=== PATIENT | male | born 1975 | race African-American/Black ===

== ENCOUNTER → 2016-10-19 | Outpatient (CLI) | payer BC ==
[~2016-10-19] MED LIST: REGADENOSON 0.4 MG/5 ML DISP.SYRIN. IV ONE
--- NOTE | 2016-10-19 13:30 | RAD ---
APPROVED REPORT Test Type: Pharmacological Stress Nurse/Tech: RIO CHA Test Indications: ELEVATED TROPONIN Cardiac History: NONE STATED, SEE EHR Medications: SEE EHR Medical History: ASTHMA, DIABETES, SEE EHR Resting ECG: SR Resting Heart Rate: 95 bpm Resting Blood Pressure: 138/87mmHg Pretest Chest Pain: No chest pain Nurse/Tech Notes LUNG SOUNDS CLEAR, S12 WNL. Consent: The procedure was explained to the patient in lay terms. Informed consent was witnessed. Randolph eout was entered into [employer]. History and Stress Test performed by RT Meggan (R) (N) Pharm. Details Pharmacologic stress testing was performed using 0.4mg per 5ml of regadenoson given intravenously ove r 7-10 seconds. Stress Symptoms NONE STATED. POST EXERCISE Reason for Termination: Infusion complete Max HR: 118 bpm Max Blood Pressure: 138/87mmHg Chest Pain: No. Arrhythmia: No. ST Change: No. INTERPRETATION Stress EKG Conclusion: The resting EKG shows a sinus rhythm with slight nonspecific ST segment change s. The stress EKG shows no significant changes from baseline. No EKG evidence of stress-induced ischemia. Imaging Protocol IMAGE PROTOCOL: Rest Tc-99m/stress Tc-99m 1 day Rest: Stress: Viability: Radiopharm.Tc99m [id number] Sestamibi Etaf25lDn 32mCi Img Date 10/19/2016 10/19/2016 Rest Admin Site:IV - Right AntecubitalAdministrator:RT Meggan (R)(N) Stress Admin Site: IV - Right AntecubitalAdministrator: RT Meggan (R)(N) STRESS DATA End Diast. Vol.61.0mlAv. Heart Rxbf337.0bpm End Syst. Vol.15.0mlCO Index BSA0.0L/min Myocardial Ydhy113.0gEject. Gstpyzsz94.0% Stress Rates Pk. Fill Rate5.93EDV/secLVtime Pk. Fill 156.88msec Pk. Empty Rate8.17ESV/secLVtime Pk. Eject75.72msec 05/17 Pk. Fill1.88EDV/sec Stress Scores Regional WT0.00Summed WT0.00 Regional WM3.00Summed WM16.00 LV Perfusion Stress scans showed no significant defects. Rest scans showed no significant defects. Nuclear imaging shows no reversible ischemia or infarct. Wall Motion Normal left ventricular systolic function with an ejection fraction of greater than 70%. LV Perf. Quant 17 Seg. SSS0.00 17 Seg. SRS0.00 17 Seg. SDS0.00 Stress Defect Extent (% LAD)0.00Rest Defect Extent (% LAD)0.00Rev. Defect Extent (% LAD)0.00 Stress Defect Extent (% LCX) 0.00Rest Defect Extent (% LCX)0.00Rev. Defect Extent (% LCX)0.00 Stress Defect Extent (% RCA)0.00Rest Defect Extent (% RCA)0.00Rev. Defect Extent (% RCA)0.00 Stress Defect Extent (% JIMMIE)0.00Rest Defect Extent (% IJMMIE)0.00Rev. Defect Extent (% JIMMIE)0.00 Conclusion 1. No EKG evidence of stress-induced ischemia. 2. Nuclear imaging shows no reversible ischemia or infarct. 3. Normal left ventricular systolic function with an ejection fraction of greater than 70%. 4. Low risk Lexiscan nuclear stress test.
== END | disposition home or self-care (01) ==
LOC: NM 08:48
PROVIDERS: ATTEND Internal Medicine Cardiovascular Disease
DX: E11.9 Type 2 diabetes mellitus without complications (principal); J45.909 Unspecified asthma, uncomplicated; R79.89 Other specified abnormal findings of blood chemistry
CPT/HCPCS: 78452; 93017; 96374; 96375; 96376; A9500; J2785

== ENCOUNTER → 2016-12-02 | Day surgery (SDC) | payer BC ==
[~2016-12-02] MED LIST changes: +ASPI-482 PO; +GLYB5TAB3 PO; +IV RINGERS,LACTATED 1000ML 1,000 ML IV SCH; +LIDOCAINE 2% PF Vial for OR 5 ML VIAL. ONE; +METF-620 PO; +PROPOFOL 20 ML IV ONE; -REGADENOSON 0.4 MG/5 ML DISP.SYRIN. IV ONE; +ZOLP5TAB PO
[2016-12-02 10:21] VITALS: BP 118/81
== END | disposition home or self-care (01) ==
LOC: ENDOS 08:39
PROVIDERS: ATTEND Internal Medicine Gastroenterology
DX: K29.50 Unspecified chronic gastritis without bleeding (principal); J45.909 Unspecified asthma, uncomplicated; M19.90 Unspecified osteoarthritis, unspecified site; E11.9 Type 2 diabetes mellitus without complications; Z86.39 Personal history of other endocrine, nutritional and metabolic disease; Z87.39 Personal history of other diseases of the musculoskeletal system and connective tissue
CPT/HCPCS: 43235; 82962; J2001; J2704

== ENCOUNTER → 2016-12-05 | Outpatient (CLI) | payer BC ==
[2016-12-02 10:21] VITALS: BP 118/81
[~2016-12-05] MED LIST changes: -IV RINGERS,LACTATED 1000ML 1,000 ML IV SCH; -LIDOCAINE 2% PF Vial for OR 5 ML VIAL. ONE; -PROPOFOL 20 ML IV ONE
--- NOTE | 2016-12-05 12:34 | RAD ---
Gastric imaging study. 12/05/2016 Indication: Early satiety. Nausea. Symptoms x2 months. Comparison study: None Discussion: Imaging over the abdomen was performed following the oral administration of solid meal containing 2.1 mCi of technetium 99 labeled sulfur colloid. No measurable imaging of the stomach was observed over a 1 hour timeframe. The gastric imaging half-time is estimated at 447 minutes which is markedly delayed. No gross reflux is identified. Impression: Markedly delayed gastric emptying.
== END | disposition home or self-care (01) ==
LOC: NM 07:25
PROVIDERS: ATTEND Internal Medicine Gastroenterology
DX: K30 Functional dyspepsia (principal); E11.9 Type 2 diabetes mellitus without complications; R68.81 Early satiety; R11.0 Nausea
CPT/HCPCS: 78264; A9541

== ENCOUNTER → 2020-01-28 | Outpatient (CLI) | payer SELFPAY ==
[2016-12-02 10:21] VITALS: BP 118/81
[~2020-01-28] MED LIST changes: -METF-620 PO; +METF10007 PO
--- NOTE | 2020-01-28 08:50 | KCIC ---
Examination: CT CALCIUM SCORING History: Reason: CARDIOVASCULAR SCREENING, diabetes. Comparison/Correlation: None Technique: With retrospective electrocardiogram gating axial reconstructed noncontrast images of the chest at the level of the coronary arteries was performed. The upper thorax was not fully included for purposes of this exam. Images were post processed on workstation and calcium score calculated using the modified Agatston Janowitz protocol. Findings: Calcium score Left main coronary artery 0 Left anterior descending artery 0 Left circumflex artery 0 Right coronary artery 0 Total coronary calcium score is 0. Fatty infiltration of the liver is present. Visualized lung bases are clear. Impression: Total calcium score of 0 is present and this corresponds with low cardiovascular disease risk. Low likelihood of coronary obstruction. Total calcium score of 0 places the patient at the 0 percentile for patients between the ages of 45-50 years. Continue "heart healthy"lifestyle habits. RS Compliance Statement: One or more of the following individualized dose reduction techniques were utilized for this examination: 1. Automated exposure control 2. Adjustment of the mA and/or kV according to patient size 3. Use of iterative reconstruction technique Electronically signed by: Luke Curry MD (01/28/2020 8:47 AM) [id number]
== END | disposition home or self-care (01) ==
LOC: KCIC CT 08:08
PROVIDERS: ATTEND Internal Medicine Cardiovascular Disease
DX: Z13.6 Encounter for screening for cardiovascular disorders (principal); E11.9 Type 2 diabetes mellitus without complications; K76.0 Fatty (change of) liver, not elsewhere classified
CPT/HCPCS: 75571

== ENCOUNTER → 2021-05-13 | Outpatient (CLI) | payer BC ==
[2016-12-02 10:21] VITALS: BP 118/81
--- NOTE | 2021-05-13 08:25 | RAD ---
EXAM: Abdomen sonogram. HISTORY: Nausea and vomiting. TECHNIQUE: Sonographic imaging of the abdomen was performed. COMPARISON: None. FINDINGS: The liver is enlarged. There is hepatic steatosis. There is focal fatty sparing along the g allbladder fossa. No suspicious hepatic lesion is seen. The common bile duct, pancreas and inferior v guadalupe cava are obscured due to bowel gas and body habitus. The gallbladder is unremarkable. The right k idney unremarkable. IMPRESSION: 1. Hepatomegaly and hepatic steatosis. 2. Obscured midline structures due to bowel gas and body habitus. Electronically signed by: Angela Pretty MD (05/13/2021 8:23 AM) [id number]
--- NOTE | 2021-05-13 12:09 | RAD ---
EXAM: Nuclear hepatobiliary scan. HISTORY: Nausea and vomiting. TECHNIQUE: Following intravenous administration of 5.2 mCi Tc 99m Choletec, anterior images of the ab domen were obtained at five minute intervals through one hour. Subsequently, 8 ounces Ensure during w as ingested and additional images to assess gallbladder ejection fraction were obtained. FINDINGS: There is prompt radiotracer uptake by the liver. No focal defect is seen. There is normal e xcretion into the biliary tree. The gallbladder is visualized within 10 minutes and there is free lupis w into the duodenum. The gallbladder ejection fraction is 27 percent. IMPRESSION: Decreased gallbladder ejection fraction of 27 percent. Electronically signed by: Angela Pretty MD (05/13/2021 12:07 PM) [id number]
== END ==
LOC: US 08:44
PROVIDERS: ATTEND Internal Medicine Gastroenterology
DX: R16.0 Hepatomegaly, not elsewhere classified (principal); K76.0 Fatty (change of) liver, not elsewhere classified; R14.3 Flatulence; R11.2 Nausea with vomiting, unspecified
CPT/HCPCS: 76705; 78227; A9537

== ENCOUNTER 2021-07-23 06:22 | Day surgery (SDC) | payer BC ==
[~2021-07-23] VITALS: Ht 172.7 cm; Wt 92.7 kg
[~2021-07-23 06:22] MED LIST changes: +HYDROmorphone 2 MG/ML INJ. IVP PRN; +METO25TA2 PO; +MORPHINE SULFATE 2 MG/ML INJ. IVP PRN; +OMEG-152 PO; +ONDA4TAB12 PO; +PROCHLORPERAZINE 10 MG/2 ML VIAL. IVP PRN; +fentaNYL PF VIAL 100 MCG/2 ML VIAL IVP PRN
[2021-07-23 06:46] VITALS: BP 185/107
[2021-07-23] MEDS ORDERED: ONDANSETRON PF 4 MG/2 ML VIAL. ONE (06:52)
[2021-07-23] MEDS ORDERED: PHENYLEPHRINE 10 MG/ML VIAL. ONE (06:52)
[2021-07-23] MEDS ORDERED: LIDOCAINE 2% PF 5 ML VIAL. ONE ×3 (06:52)
[2021-07-23] MEDS ORDERED: KETOROLAC 30 MG/ML VIAL. ONE (06:52)
[2021-07-23] MEDS ORDERED: PROPOFOL 10 MG/ML (20ML) VIAL. IV ONE (06:52)
[2021-07-23] MEDS ORDERED: DEXAMETHASONE SOD PHOS 4 MG/ML VIAL ONE (06:52)
[2021-07-23] MEDS ORDERED: MAGNESIUM SULFATE 5 GM/10 ML VIAL. ONE (06:52)
[2021-07-23] MEDS ORDERED: BUPIVACAINE-EPI 0.5% 30 ML VIAL KIT. ONE (06:55)
[2021-07-23] MEDS ORDERED: KETAMINE HCL IN NACL, ISO-OSM 50 MG/5 ML SYRINGE ONE (06:55)
[2021-07-23] MEDS ORDERED: MIDAZOLAM HCL/PF 2 MG/2 ML VIAL. ONE (06:56)
[2021-07-23] MEDS ORDERED: SUCCINYLCHOLINE 200 MG/10 ML VIAL. ONE (06:56)
[2021-07-23] MEDS ORDERED: ROCURONIUM 50 MG/5 ML VIAL. ONE (06:56)
[2021-07-23] MEDS ORDERED: INSULIN LISPRO 100 UNIT/ML 3ML VIAL for OP,RR ONLY. SQ PRN (07:00)
[2021-07-23] MEDS ORDERED: ACETAMINOPHEN 500 MG TABLET PO PRN (07:00)
[2021-07-23] MEDS: IV RINGERS,LACTATED 1000ML 1,000 ML IV SCH ×2 (07:01→08:54)
--- NOTE | 2021-07-23 07:14 | PDOC1 ---
History and Physical Date of Admission Date of Admission DATE: 07/23/21 TIME: 07:10 Identification/Chief Complaint Chief Complaint Abdominal pain Source Source: Patient History of Present Illness History of Present Illness 46-year-old male with complaints of right upper quadrant abdominal pain radiating to his back especially after eating with nausea and occasional diarrhea evaluated with a HIDA scan which shows an ejection fraction of 27% Past Medical History Cardiovascular: No pertinent hx Pulmonary: Asthma GI: Gastritis Heme/Onc: No pertinent hx Hepatobiliary: No pertinent hx Psych: No pertinent hx Rheumatologic: No pertinent hx Infectious disease: No pertinent hx ENT: No pertinent hx Renal/: No pertinent hx Endocrine: Diabetes Dermatology: No pertinent hx Past Surgical History Past Surgical History: No pertinent history Family History Family History: No Significant Social History Smoke: No ALCOHOL: none Drugs: None Current Medications Current Medications Current Medications Fentanyl Citrate (Fentanyl 2ml Vial) 25 mcg PRN Q5MIN PRN IVP MILD PAIN 1-3; Start 07/23/21 at 06:00; Stop 07/24/21 at 05:59 Fentanyl Citrate (Fentanyl 2ml Vial) 50 mcg PRN Q5MIN PRN IVP MODERATE PAIN 4- 6; Start 07/23/21 at 06:00; Stop 07/24/21 at 05:59 Morphine Sulfate (Morphine Sulfate) 1 mg PRN Q10MIN PRN IVP SEVERE PAIN 7-10; Start 07/23/21 at 06:00; Stop 07/24/21 at 05:59 Ringer's Solution 1,000 ml @ 30 mls/hr Q24H IV Last administered on 07/23/21at 07:01; Start 07/23/21 at 06:00; Stop 07/23/21 at 17:59 Hydromorphone HCl (Dilaudid) 0.5 mg PRN Q10MIN PRN IVP SEVERE PAIN 7-10, 2nd CHOICE; Start 07/23/21 at 06:00; Stop 07/24/21 at 05:59 Prochlorperazine Edisylate (Compazine) 5 mg PACU PRN PRN IVP NAUSEA, MRX1; Start 07/23/21 at 06:00; Stop 07/24/21 at 05:59 Acetaminophen (Tylenol) 1,000 mg 1X PREOP PRN PO PRIOR TO PROCEDURE Last administered on 07/23/21at 07:02; Start 07/23/21 at 07:00 Cefazolin Sodium/ Dextrose 50 ml @ 100 mls/hr 1X PREOP PRN IV PRIOR TO PROCEDURE; Start 07/23/21 at 06:00; Stop 07/23/21 at 18:00 Sugammadex Sodium (Bridion) 200 mg 1X ONCE IVP ; Start 07/23/21 at 07:30; Stop 07/23/21 at 07:31 Magnesium Sulfate (Magnesium Sulfate) 5 gm STK-MED ONCE .ROUTE ; Start 07/23/21 at 06:52; Stop 07/23/21 at 06:52; Status DC Lidocaine HCl (Lidocaine Pf 2% Vial) 5 ml STK-MED ONCE .ROUTE ; Start 07/23/21 at 06:52; Stop 07/23/21 at 06:52; Status DC Ketorolac Tromethamine (Toradol 30mg Vial) 30 mg STK-MED ONCE .ROUTE ; Start 07/23/21 at 06:52; Stop 07/23/21 at 06:52; Status DC Ondansetron HCl (Zofran) 4 mg STK-MED ONCE .ROUTE ; Start 07/23/21 at 06:52; Stop 07/23/21 at 06:52; Status DC Propofol (Diprivan) 200 mg STK-MED ONCE IV ; Start 07/23/21 at 06:52; Stop 07/23/21 at 06:52; Status DC Lidocaine HCl (Lidocaine Pf 2% Vial) 5 ml STK-MED ONCE .ROUTE ; Start 07/23/21 at 06:52; Stop 07/23/21 at 06:52; Status DC Dexamethasone Sodium Phosphate (Decadron) 4 mg STK-MED ONCE .ROUTE ; Start 07/23/21 at 06:52; Stop 07/23/21 at 06:52; Status DC Lidocaine HCl (Lidocaine Pf 2% Vial) 5 ml STK-MED ONCE .ROUTE ; Start 07/23/21 at 06:52; Stop 07/23/21 at 06:52; Status DC Phenylephrine HCl (Xander-Synephrine Inj) 10 mg STK-MED ONCE .ROUTE ; Start 07/23/21 at 06:52; Stop 07/23/21 at 06:52; Status DC Bupivacaine HCl/ Epinephrine Bitart (Sensorcain-Epi 0.5% Kit) 30 ml STK-MED ONCE .ROUTE ; Start 07/23/21 at 06:55; Stop 07/23/21 at 06:55; Status DC Ketamine HCl (Ketamine) 50 mg STK-MED ONCE .ROUTE ; Start 07/23/21 at 06:55; Stop 07/23/21 at 06:56; Status DC Midazolam HCl (Versed) 2 mg STK-MED ONCE .ROUTE ; Start 07/23/21 at 06:56; Stop 07/23/21 at 06:56; Status DC Succinylcholine Chloride (Anectine) 200 mg STK-MED ONCE .ROUTE ; Start 07/23/21 at 06:56; Stop 07/23/21 at 06:57; Status DC Rocuronium Buchanan (Zemuron) 50 mg STK-MED ONCE .ROUTE ; Start 07/23/21 at 06:56; Stop 07/23/21 at 06:57; Status DC Insulin Human Lispro (HumaLOG VIAL for OP,RR ONLY) 0-10 units PRN Q1HR PRN SQ PER PROTOCOL; Start 07/23/21 at 07:00; Stop 07/24/21 at 06:59 Active Scripts Active Reported Toprol Xl (Metoprolol Succinate) 25 Mg Tab.er.24h 25 Mg PO BID Fish Oil 1,000 Mg Softgel ([place]-3/Dha/Epa/Fish Oil) 1 Each Capsule 1 Each PO DAILY Ondansetron Odt (Ondansetron) 4 Mg Tab.rapdis 4 Mg PO BID PRN Ambien (Zolpidem Tartrate) 5 Mg Tablet 1 Tab PO QHS Aspir 81 (Aspirin) 81 Mg Tablet.dr 1 Tab PO DAILY Glyburide 5 Mg Tablet 1 Tab PO BID Metformin Hcl 1,000 Mg Tablet 1,000 Mg PO BIDWMEALS Allergies Allergies: Coded Allergies: No Known Drug Allergies (Unverified , 07/19/21) ROS General: No: Chills, Night Sweats, Fatigue, Malaise, Appetite, Other PSYCHOLOGICAL ROS: No: Anxiety, Behavioral Disorder, Concentration difficultie, Decreased libido, Depression, Disorientation, Hallucinations, Hostility, Irritablity, Memory difficulties, Mood Swings, Obsessive thoughts, Physical abuse, Sexual abuse, Sleep disturbances, Suicidal ideation, Other Eyes: No Blurry vision, No Decreased vision, No Double vision, No Dry eyes, No Excessive tearing, No Eye Pain, No Itchy Eyes, No Loss of vision, No Photophobia, No Scotomata, No Uses contacts, No Uses glasses, No Other HEENT: No: Heacaches, Visual Changes, Hearing change, Nasal congestion, Nasal discharge, Oral lesions, Sinus pain, Sore Throat, Epistaxis, Sneezing, Snoring, Tinnitus, Vertigo, Vocal changes, Other ALLERGY AND IMMUNOLOGY: No: Hives, Insect Bite Sensitivity, Itchy/Watery Eyes, Nasal Congestion, Post Nasal Drip, Seasonal Allergies, Other Hematological and Lymphatic: No: Bleeding Problems, Blood Clots, Blood Transfusions, Brusing, Night Sweats, Pallor, Swollen Lymph Nodes, Other ENDOCRINE: No: Breast Changes, Galactorrhea, Hair Pattern Changes, Hot Flashes, Malaise/lethargy, Mood Swings, Palpitations, Polydipsia/polyuria, Skin Changes, Temperature Intolerance, Unexpected Weight Changes, Other Breast: No New/Changing Breast Lumps, No Nipple changes, No Nipple discharge, No Other Respiratory: No: Cough, Hemoptysis, Orthopnea, Pleuritic Pain, Shortness of breath, SOB with excertion, Sputum Changes, Stridor, Tachypnea, Wheezing, Other Cardiovascular: No Chest Pain, No Palpitations, No Orthopnea, No Paroxysmal Noc . Dyspnea, No Edema, No Lt Headedness, No Other Gastrointestinal: Yes Nausea, Yes Vomiting, Yes Abdominal Pain, Yes Diarrhea Genitourinary: No Dysuria, No Frequency, No Incontinence, No Hematuria, No Retention, No Discharge, No Urgency, No Pain, No Flank Pain, No Other, No , No , No , No , No , No , No Musculoskeletal: No Gait Disturbance, No Joint Pain, No Joint Stiffness, No Mirna int Swelling, No Muscle Pain, No Muscular Weakness, No Pain In:, No Swelling In:, No Other Neurological: No Behavorial Changes, No Bowel/Bladder ControlChng, No Confusion, No Dizziness, No Gait Disturbance, No Headaches, No Impaired C oord/balance, No Memory Loss, No Numbness/Tingling, No Seizures, No Speech Problems, No Tremors, No Visual Changes, No Weakness, No Other Skin: No Dry Skin, No Eczema, No Hair Changes, No Lumps, No Mole Changes, No Mottling, No Nail Changes, No Pruritus, No Rash, No Skin Lesion Changes, No Other, No Acne Physical Exam General: Alert, Oriented X3, Cooperative, No acute distress HEENT: Atraumatic, PERRLA, EOMI Lungs: Clear to auscultation, Normal air movement Heart: RRR, no murmurs Abdomen: Normal bowel sounds, Soft, Other (Mildly tender to epigastrium to right upper quadrant) Rectal Exam: not examined Extremities: No edema Skin: No significant lesion Neuro: Normal speech Psych/Mental Status: Mental status NL Vitals Vitals Vital Signs Date Time Temp Pulse Resp B/P (MAP) Pulse Ox O2 Delivery O2 Flow Rate FiO2 07/23/21 06:49 97.5 62 18 185/107 99 Room Air 97.5 Labs Labs Laboratory Tests Test 07/23/21 06:57 Glucose (Fingerstick) 92 mg/dL (70-99) Laboratory Tests Test 07/23/21 06:57 Glucose (Fingerstick) 92 mg/dL (70-99) VTE Prophylaxis Ordered VTE Prophylaxis Devices: Yes VTE Pharmacological Prophylaxi: Contraindicated Assessment/Plan Assessment/Plan Biliary dyskinesia plan laparoscopic cholecystectomy Justifications for Admission Other Justification ABRAN WICK MD Jul 23, 2021 07:13
[2021-07-23] MEDS ORDERED: ESMOLOL 100 MG/10 ML VIAL. IVP ONE (07:26)
[2021-07-23] MEDS ORDERED: SUGAMMADEX SODIUM 200 MG/2 ML VIAL. IVP ONE (07:30)
[2021-07-23] MEDS ORDERED: GLYCOPYRROLATE 1 MG/5 ML VIAL. ONE (07:39)
--- NOTE | 2021-07-23 08:02 | PDOC4 ---
Operative Note Operative Note Date: July 232020 at 7:59 AM Preoperative diagnosis: Biliary dyskinesia Postoperative diagnosis: Same Procedure: Laparoscopic cholecystectomy with fluorescein cholangiography Surgeon: Wellington Specimen: Gallbladder Shop Foreman: None Dictation: Patient is a 46-year-old male who is complained of right upper quadrant abdominal pain postprandial nausea HIDA scan showed ejection fraction of 27%. Procedure laparoscopic cholecystectomy was explained to the patient detail risk benefits were also discussed including bleeding infection injury to intra-abdominal contents possible necessitating further open operations alternatives to this procedure also discussed with the patient who seemed to understand and gave a verbal written consent to have procedure performed. Patient was taken to the operating room placed in the supine position general anesthesia was initiated once patient was sleeping intubated his abdomen was prepped and draped usual sterile fashion using ChloraPrep. An area just above the umbilicus was injected with quarter percent Marcaine with epinephrine incision was made with a blade scalpel and a varies needle was placed within the abdomen creating pneumoperitoneum once this was complete the millimeter port was placed in a 5 mm camera was placed within the abdomen which was inspected no other abnormalities were noted other than he does have a small umbilical hernia. 5 mm port was placed in the epigastrium a 5 mm port was placed in the right m idabdomen and a 5 mm port was placed in the right lateral abdomen all on direct visualization the dome of the gallbladder is grasped retracted cephalad the infundibulum of the gallbladder is grasped retracted laterally exposing the triangle adherent tissues of the triangle were taken down exposing the cystic duct and cystic artery fluorescing cholangiography was then performed which showed good dye within the gallbladder cystic duct to the common bile duct no evidence of obstruction. The cystic duct was doubly clipped and transected the cystic artery was similarly clipped and transected the gallbladder was taken off the liver with hook electrocautery placed in Endo Catch bag and roof the umbilicus right upper quadrant was irrigated suctioned dry hemostasis deemed be appropriate the pneumoperitoneum was reduced all ports were removed the fascial defect at the umbilicus was closed with [id number] 0 Vicryl suture and skin was reapproximated all port sites for subcuticular Monocryl Mastisol Steri- Strips and island dressings were applied. Patient was awakened and extubated in the operating room taken to recovery in stable condition all sponge instrument needle counts listed as correct estimated blood loss 5 mL ABRAN WICK MD Jul 23, 2021 08:02
[2021-07-23] MEDS ORDERED: OXYC-314 PO (08:05)
--- NOTE | 2021-07-23 08:06 | DISCH ---
DISCHARGE INSTRUCTIONS Condition on Discharge Condition on Discharge: Stable Activity After Discharge Activity Instructions for Disc: Avoid exertion Other activity instructions: No lifting more than 20 pounds for 2-week Diet after Discharge Diet after Discharge: Low Fat Wound Incision Care Other wound/incision instructi: May shower in 24-hour Contacting the DRAnthony after DC Call your doctor for: If your condition worsens Follow-Up Follow up with: Dr. Wick in 2-week ABRAN WICK MD Jul 23, 2021 08:06
[2021-07-23] MEDS ORDERED: fentaNYL PF VIAL 100 MCG/2 ML VIAL ONE (08:28)
[2021-07-23] MEDS ORDERED: PROCHLORPERAZINE 10 MG/2 ML VIAL. ONE (08:28)
[2021-07-23] MEDS ORDERED: oxyCODONE/APAP 5/325 1 TAB TABLET PO ONE (08:45)
[2021-07-23] MEDS ORDERED: ALBUMIN HUMAN 5% 500 ML IV ONE ×2 (09:22→09:30)
[2021-07-23] MEDS ORDERED: INSULIN LISPRO 100 UNIT/ML 3ML VIAL for OP,RR ONLY. SQ ONE (09:30)
[2021-07-23 11:28] LABS: PROTHROMBIN TIME PATIENT 13.5 SEC (11.7-14.0)
[2021-07-23 11:44] LABS: HEMOGLOBIN 12.1 g/dL (13.0-17.5); RED CELL DISTRIBUTION WIDTH 15.4 % (11.5-14.5); WHITE BLOOD COUNT 7.9 x10^3/uL (4.0-11.0)
[2021-07-23 11:46] VITALS: BP 112/80
--- NOTE | 2021-07-26 17:32 | PATHOLOGY ---
[facility] Accession Number: [id number] . 01 Material submitted: . gallbladder - GALLBLADDER AND CONTENTS . 01 Clinical history: . BILIARY DYSKINESIA LAP CECELIA . 02 Diagnosis: Gallbladder, laparoscopic cholecystectomy: - Cholelithiasis. - Polypoid cholesterolosis, focal. - Chronic cholecystitis. - Lipogranulomata of gallbladder neck lymph node. . ([facility]:mm; 07/26/2021) [facility] 07/26/2021 1349 Local . 02 Comment: There is no evidence of malignancy. . (JP:mml; 07/26/2021) . 02 Electronically signed: . Reyes Eisenberg MD, Pathologist NPI- [id number] . 01 Gross description: . Fixative: Formalin Labeled: Gallbladder and contents Specimen received: Intact Dimensions: 9.4 x 2.8 x 2.8 cm Lymph node: 0.6 x 0.4 x 0.3 cm Serosa: Purple-blake, smooth and unremarkable Calculi: Multiple black calculi (1.1 x 1.0 x < 0.1 cm) Mucosa: Green and velvety without villaseñor stippling Average wall thickness: 0.2 cm Abnormalities: The mucosa displays a villaseñor polyp (<0.1 x < 0.1 x < 0.1 cm) which appears confined to the mucosa A1: Gallbladder, represented to include the entirety of the candidate lymph node and polyp (JAMUL; 07/23/2021) DKA/DKA 07/23/2021 1613 Local . 02 Pathologist provided ICD-10: K80.10, K82.4 . 02 CPT . 266929 Specimen Comment: A courtesy copy of this report has been sent to [phone], [phone] Specimen Comment: [id number] Specimen Comment: Report sent to / DR CHAVEZ Specimen Comment: A duplicate report has been generated due to demographic updates. Performed at: [address] [facility], [place] [id number] MD Masood Pyle MD Phone: [phone] Performed at: [facility] [address], [place] [id number] MD Reyes Eisenberg MD Phone: [phone]
== END 2021-07-23 12:04 | disposition home or self-care (01) ==
LOC: SURG 06:22
PROVIDERS: ATTEND Surgery
DX: K80.10 Calculus of gallbladder with chronic cholecystitis without obstruction (principal); K82.8 Other specified diseases of gallbladder; J45.909 Unspecified asthma, uncomplicated; E11.9 Type 2 diabetes mellitus without complications; I10 Essential (primary) hypertension; M19.90 Unspecified osteoarthritis, unspecified site; Z79.82 Long term (current) use of aspirin; Z79.84 Long term (current) use of oral hypoglycemic drugs; Z79.899 Other long term (current) drug therapy; Z98.890 Other specified postprocedural states
CPT/HCPCS: 36415; 47563; 82962; 85027; 85610; A4213; A4364; A4930; A6219; A6257; J0330; J0690; J0780; J1100; J1815; J1885; J2250; J2370; J2405; J2704; J3010; J3475; J3490; P9045; A4223; A4657

== ENCOUNTER 2021-07-23 15:29 | Emergency (ER) | payer BC ==
[~2021-07-23] VITALS: Ht 172.7 cm; Wt 93.6 kg
[~2021-07-23 15:29] MED LIST changes: -HYDROmorphone 2 MG/ML INJ. IVP PRN; -MORPHINE SULFATE 2 MG/ML INJ. IVP PRN; +OXYC-314 PO; -PROCHLORPERAZINE 10 MG/2 ML VIAL. IVP PRN; -fentaNYL PF VIAL 100 MCG/2 ML VIAL IVP PRN
[2021-07-23 15:40] VITALS: BP 138/89
[2021-07-23] MEDS ORDERED: LIDOCAINE/EPI/TETRACAINE TOPICAL GEL 3 ML. TP ONE (16:00)
--- NOTE | 2021-07-23 16:05 | PHYS DOC ---
Past Medical History Additional Past Medical Histor: gastroparesis Past Surgical History: Cholecystectomy General Adult EDM: Chief Complaint: POST-OP PROBLEM HPI: HPI: Patient is a 46 year old male who presents with had his gallbladder removed tokingsley garrett and before he left he states that he was having some bleeding from the incisions. They got the bleeding to stop but he is back here in the ED for bleeding from his incisions. Patient denies pain, nausea, vomiting, chest pain, shortness of breath, dizziness. Review of Systems: Review of Systems: Constitutional: Denies fever or chills. [] Eyes: Denies change in visual acuity. [] HENT: Denies nasal congestion or sore throat. [] Respiratory: Denies cough or shortness of breath. [] Cardiovascular: Denies chest pain or edema. [] GI: Denies abdominal pain, nausea, vomiting, bloody stools or diarrhea. [] : Denies dysuria. [] Musculoskeletal: Denies back pain or joint pain. [] Integument: Denies rash. + Bleeding from surgical incision [] Neurologic: Denies headache, focal weakness or sensory changes. [] Endocrine: Denies polyuria or polydipsia. [] Lymphatic: Denies swollen glands. [] Psychiatric: Denies depression or anxiety. [] Heart Score: C/O Chest Pain: No Current Medications: Current Medications Medications (Trade) Dose Ordered Sig/Michael Start Time Stop Time Status Last Admin Dose Admin Tetracaine/ Epinephrine/ Lidocaine (Let (Sgpf-Pxcvpoe-Iryqn) Gel) 3 ml 1X ONCE 07/23/21 16:00 07/23/21 16:01 UNV Allergies: Allergies: Allergies Coded Allergies Type Severity Reaction Last Updated Verified No Known Drug Allergies 07/19/21 No Physical Exam: PE: Constitutional: Well developed, well nourished, no acute distress, non-toxic appearance. [] HENT: Normocephalic, atraumatic, bilateral external ears normal, oropharynx moist, no oral exudates, nose normal. [] Eyes: PERRLA, EOMI, conjunctiva normal, no discharge. [] Neck: Normal range of motion, no tenderness, supple, no stridor. [] Cardiovascular:Heart rate regular rhythm, no murmur [] Lungs & Thorax: Bilateral breath sounds clear to auscultation [] Abdomen: Bowel sounds normal, soft, no tenderness, no masses, no pulsatile masses. [] Skin: Warm, dry, no erythema, no rash. Patient's lateral lower incision and lateral upper incision is bleeding with a steady stream. [] Back: No tenderness, no CVA tenderness. [] Extremities: No tenderness, no cyanosis, no clubbing, ROM intact, no edema. [] Neurologic: Alert and oriented X 3, normal motor function, normal sensory function, no focal deficits noted. [] Psychologic: Affect normal, judgement normal, mood normal. [] Current Patient Data: Vital Signs: Vital Signs Date Time Temp Pulse Resp B/P (MAP) Pulse Ox O2 Delivery O2 Flow Rate FiO2 07/23/21 15:40 98.1 90 18 138/89 (105) 100 Room Air 98.1 EKG: EKG: [] Radiology/Procedures: Radiology/Procedures: [] Course & Med Decision Making: Course & Med Decision Making Pertinent Labs and Imaging studies reviewed. (See chart for details) See HPI. Alert and orient x4. Ambulatory steady gait. Speaks in full clear sentences. Patient's lateral lower and lateral upper incisions are bleeding with a steady stream. Patient is applying pressure. I spoke with Dr. Moreau who is on-call for Dr. Paris and he stated to put a couple of reginald in the 2 incisions are bleeding. 2 reginald are placed in lateral lower incision and lateral upper incision. Dermabond is placed over the mid abdominal suture as it did appear to be slightly coming apart. Patient tolerated well. Bleeding has now stopped. [] Dragon Disclaimer: Dragon Disclaimer: This electronic medical record was generated, in whole or in part, using a voice recognition dictation system. Departure Departure Impression: Primary Impression: Post-operative complication Qualified Codes: L76.82 - Other postprocedural complications of skin and subcutaneous tissue Disposition: HOME / SELF CARE / HOMELESS Condition: STABLE Referrals: GRACIA CHAVEZ MD (PCP) Patient Instructions: Stitches, [place] or Skin Adhesive Strips, Seqa-ag-Niba Additional Instructions: Follow-up with Dr. Paris as you are scheduled. Do not put any lotion or Neosporin over the glue. Watch for signs of infection. VINICIO SOLIS APRN Jul 23, 2021 16:05
== END 2021-07-23 17:09 | disposition home or self-care (01) ==
LOC: ER 15:29
DX: L76.82 Other postprocedural complications of skin and subcutaneous tissue (principal)
CPT/HCPCS: 99282